=== PATIENT | female | born 1990 | race Caucasian/White ===

== ENCOUNTER 2016-12-16 10:08 | Emergency (ER) | payer OTHER ==
[2016-12-16 10:28] VITALS: BMI 37.1
--- NOTE | 2016-12-16 10:34 | C.PDOC ---
Time Seen by Provider: 12/16/16 10:26 Chief Complaint (Nursing): Abdominal Pain Past Medical History - Medical History PMH: Anxiety, Asthma, Seizures Surgical History: Appendectomy Family History: States: Unknown Family Hx, Diabetes - Social History Hx Tobacco Use: Yes Hx Alcohol Use: No Hx Substance Use: Yes - Immunization History Hx Tetanus Toxoid Vaccination: No Hx Influenza Vaccination: No Hx Pneumococcal Vaccination: No Disposition - Disposition Forms: [employer] (Polish)
[2016-12-16 10:35] VITALS: RESP 18
--- NOTE | 2016-12-16 10:35 | C.PDOC ---
History Of Present Illness 26 y/o female presents to ED with complaints of nausea and pelvic pain for 2 weeks. Patient reports late menses by 6 weeks and states her menses is normally regular. Patient denies diarrhea, dysuria, hematuria, urinary frequency , vaginal discharge or any other complaints at this time. NAUSEA, PELVIC PAIN X 2 WEEKS. LATE MENSES BY 6 WEEKS, NORMALLY REGULAR. NO DIARRHEA, UTI SX. NO OTHER ASSOC SX. [id number] EXAM NEG Time Seen by Provider: 12/16/16 10:26 Chief Complaint (Nursing): Abdominal Pain History Per: Patient History/Exam Limitations: no limitations Onset/Duration Of Symptoms: Days Current Symptoms Are (Timing): Still Present Associated Symptoms: Nausea Past Medical History Reviewed: Historical Data, Nursing Documentation, Vital Signs Vital Signs: Last Vital Signs Temp 98.2 F 12/16/16 10:30 Pulse 75 12/16/16 10:30 Resp 18 12/16/16 10:30 BP 111/75 12/16/16 10:30 Pulse Ox 100 12/16/16 10:50 - Medical History PMH: Anxiety, Asthma, Seizures Surgical History: Appendectomy Family History: States: Diabetes - Social History Hx Tobacco Use: Yes Hx Alcohol Use: No Hx Substance Use: Yes - Immunization History Hx Tetanus Toxoid Vaccination: No Hx Influenza Vaccination: No Hx Pneumococcal Vaccination: No Review Of Systems Except As Marked, All Systems Reviewed And Found Negative. Constitutional: Negative for: Fever, Chills Gastrointestinal: Positive for: Nausea. Negative for: Diarrhea Genitourinary: Positive for: Pelvic Pain. Negative for: Dysuria, Frequency, Hematuria Skin: Negative for: Rash Physical Exam - Physical Exam Appears: Non-toxic, No Acute Distress Skin: Normal Color, Warm, No Rash Head: Atraumatic, Normacephalic Eye(s): bilateral: Normal Inspection Oral Mucosa: Moist Neck: Normal ROM, Supple Chest: Symmetrical Cardiovascular: Rhythm Regular, No Murmur Respiratory: Normal Breath Sounds, No Rales, No Rhonchi, No Wheezing Gastrointestinal/Abdominal: Soft, No Tenderness, No Guarding, No Rebound Extremity: Normal ROM, Capillary Refill (<2 seconds) Neurological/Psych: Oriented x3 ED Course And Treatment - Laboratory Results Result Diagrams: 12/16/16 11:01 12/16/16 11:01 Urine POC: Negative O2 Sat by Pulse Oximetry: 100 (RA) Pulse Ox Interpretation: Normal Progress - Re-Evaluation Re-evaluation Note: 12/16/16 12:03 FEELS BETTER. VSS. NO S/S ACUTE ABD - Data Reviewed Data Reviewed: Lab, Old records Disposition Counseled Patient/Family Regarding: Studies Performed, Diagnosis, Need For Followup, Rx Given - Disposition Referrals: YOUR,OBGYN [Other] Disposition: HOME/ ROUTINE Disposition Time: 12:03 Condition: IMPROVED Prescriptions: Ondansetron ODT [Zofran ODT] 4 mg PO TID PRN #12 odt PRN Reason: Nausea/Vomiting Instructions: Amenorrhea (GEN) Forms: [employer] (Guatemalan), Work Excuse - Clinical Impression Clinical Impression: Amenorrhea, Nausea - Scribe Statement The provider has reviewed the documentation as recorded by the Albertoibdinora Rivera All medical record entries made by the Albertoibdinora were at my direction and personally dictated by me. I have reviewed the chart and agree that the record accurately reflects my personal performance of the history, physical exam, medical decision making, and the department course for this patient. I have also personally directed, reviewed, and agree with the discharge instructions and disposition.
[2016-12-16] MEDS ORDERED: Sodium Chloride 0.9% 1,000 ML IV ONE (10:44)
[2016-12-16 10:48] LABS: RBC URINE 3 /hpf (0-3); URINE BACTERIA RARE (<OCC); URINE BILIRUBIN NEGATIVE (NEGATIVE); URINE BLOOD NEGATIVE (NEGATIVE); URINE COLOR Yellow (YELLOW); URINE GLUCOSE (UA) NORMAL (Normal); URINE KETONE NEGATIVE (NEGATIVE); URINE LEUKOCYTE ESTERASE TRACE Leu/uL (Negative); URINE PROTEIN NEGATIVE (NEGATIVE); URINE UROBILINOGEN NORMAL mg/dL (0.2-1.0); WBC URINE 8 /hpf (0-5)
[2016-12-16] MEDS ORDERED: Sodium Chloride 0.9% 1,000 ML ONE (10:50)
[2016-12-16 11:16] LABS: BASO % 0.3 % (0.0-2.0); EOS # 0.1 K/uL (0.0-0.7); EOS % 0.8 % (0.0-4.0); HEMATOCRIT 40.6 % (34.0-47.0); LYMPH # 2.1 K/uL (1.0-4.3); LYMPH % 25.3 % (20.0-40.0); MEAN CELL VOLUME 90.5 fL (81.0-99.0); MEAN CORPUSCULAR HEMOGLOBIN 30.8 pg (27.0-31.0); MONO # 0.5 K/uL (0.0-0.8); MONO % 5.9 % (0.0-10.0); RED CELL DISTRIBUTION WIDTH 12.7 % (11.5-14.5); WHITE BLOOD COUNT 8.3 K/uL (4.8-10.8)
[2016-12-16 11:24] LABS: CHLORIDE 105 mmol/L (98-107); POTASSIUM 3.9 mmol/L (3.6-5.2); SODIUM 143 mmol/L (132-148)
[2016-12-16 11:27] LABS: BLOOD UREA NITROGEN 11 mg/dL (7-17); CARBON DIOXIDE 27 mmol/L (22-30); GFR AFRICAN-AMERICAN > 60
[2016-12-16 11:28] LABS: CALCIUM 9.4 mg/dl (8.6-10.4); GLUCOSE,RANDOM 91 mg/dL (65-105)
[2016-12-16 12:12] VITALS: BP 105/70; PULSE 69; TEMP 98.1; O2SAT 98
== END 2016-12-16 12:12 | disposition home or self-care (01) ==
LOC: C.ER 10:08
DX: N91.2 Amenorrhea, unspecified (principal); R11.0 Nausea
CPT/HCPCS: 80048; 81001; 85025; 87086; 96361; 96374; 96375; 99285; J1885; J2405; J7040